=== PATIENT | female | born 1935 | race Caucasian/White ===

== ENCOUNTER → 2017-11-08 | Outpatient (CLI) | payer MEDICARE, MEDICAID | END | disposition home or self-care (01) | LOC: RADPV 07:59 | PROVIDERS: ATTEND Legal Medicine | DX: J44.9 Chronic obstructive pulmonary disease, unspecified (principal); I70.0 Atherosclerosis of aorta | CPT/HCPCS: 71046 ==

== ENCOUNTER → 2018-06-06 | Outpatient (CLI) | payer MEDICARE, MEDICAID ==
[~2018-06-06] MED LIST: IOVERSOL 350 MG/ML 100 ML VIAL ONE
== END | disposition home or self-care (01) ==
LOC: RADMN 09:14
PROVIDERS: ATTEND Internal Medicine Gastroenterology
DX: K80.20 Calculus of gallbladder without cholecystitis without obstruction (principal); K57.30 Diverticulosis of large intestine without perforation or abscess without bleeding; K44.9 Diaphragmatic hernia without obstruction or gangrene; J44.9 Chronic obstructive pulmonary disease, unspecified; I70.0 Atherosclerosis of aorta
CPT/HCPCS: 74176; Q9967

== ENCOUNTER → 2019-11-29 | Outpatient (CLI) | payer MEDICARE, MEDICAID | END | disposition home or self-care (01) | LOC: RADPV 09:44 | PROVIDERS: ATTEND Legal Medicine | DX: M47.814 Spondylosis without myelopathy or radiculopathy, thoracic region (principal); M48.04 Spinal stenosis, thoracic region; M19.90 Unspecified osteoarthritis, unspecified site; M85.80 Other specified disorders of bone density and structure, unspecified site | CPT/HCPCS: 72070 ==